=== PATIENT | male | born 1975 | race Caucasian/White ===

== ENCOUNTER → 2020-05-01 | Outpatient (CLI) | payer SELFPAY ==
[2020-05-01 15:03] LABS: ALBUMIN 4.2 g/dL (3.5-5.0)
[2020-05-01 15:06] LABS: TOTAL PROTEIN 7.7 g/dL (6.4-8.3)
[2020-05-01 15:07] LABS: EOS # 0.2 (0.04-0.40); EOS % 2.2 % (0.0-4.0); HEMATOCRIT 45.6 % (42.0-52.0); HEMOGLOBIN 15.7 g/dL (13.5-18.0); LYMPH# 2.1 (1.50-4.00); MEAN CELL VOLUME 89 fl (78-100); MEAN CORPUSCULAR HEMOGLOBIN 31 pg (27-31); MEAN CORPUSCULAR HGB CONC 34 g/dL (33-37); MEAN PLATELET VOLUME 10.7 fl (7.4-10.4); MONO # 1.1 (0.20-0.80); NEU # 6.9 (1.40-6.50); PLATELET COUNT 319 K/mm3 (130-400); RED BLOOD COUNT 5.12 M/mm3 (4.20-5.60); WHITE BLOOD COUNT 10.4 K/mm3 (4.8-10.8)
[2020-05-01 15:08] LABS: TOTAL BILIRUBIN 0.9 mg/dL (0.2-1.2)
[2020-05-01 15:11] LABS: DIRECT BILIRUBIN 0.3 mg/dL (0.0-0.5)
== END ==
LOC: LAB 14:36
PROVIDERS: Nurse Practitioner
DX: R10.11 Right upper quadrant pain (principal)

== ENCOUNTER → 2020-05-02 | Outpatient (CLI) | payer SELFPAY | LOC: RAD 08:26 | DX: K82.8 Other specified diseases of gallbladder (principal) ==